=== PATIENT | male | born 1940 | race Caucasian/White ===

== ENCOUNTER → 2020-05-03 | Outpatient (CLI) | payer OTHER ==
[~2020-05-03] MED LIST: ACETAMINOPHEN325 M1 PO; AMBEREN; ASPIRIN EC81 M1 PO; ATENOLOL 25 MG25 M1 PO; CALCIUM 600 +1 EAC8; CARDIZEM CD120 MG PO; DILTIAZEM ER120 M1 PO; DILTIAZEM ER180 M1; EQL GLUCOSAMIN; FISH OIL SOFTG1 EACH; FISHOIL; FLOMAX PO; NAPROSYN500 MG PO; NEXIUM40 MG PO; PRADAXA150 MG PO; PRIMIDONE50 MG PO; REQUIP 1 MG TABL1 M1 PO; TAMBOCOR 50 MG50 MG PO; TAMSULOSIN HCL0.4 M1 PO; VITAMIN D35000 UNI1; VITAMINC500
== END ==
LOC: SJCVC 11:33
PROVIDERS: ATTEND Internal Medicine
DX: Z45.018 Encounter for adjustment and management of other part of cardiac pacemaker (principal); R94.31 Abnormal electrocardiogram [ECG] [EKG]; I48.0 Paroxysmal atrial fibrillation; I11.0 Hypertensive heart disease with heart failure; I50.32 Chronic diastolic (congestive) heart failure; E78.5 Hyperlipidemia, unspecified; G47.33 Obstructive sleep apnea (adult) (pediatric); Z79.01 Long term (current) use of anticoagulants; Z79.899 Other long term (current) drug therapy; Z87.891 Personal history of nicotine dependence

== ENCOUNTER → 2020-11-06 | Outpatient (CLI) | payer OTHER | LOC: SJCVC 13:31 | PROVIDERS: ATTEND Internal Medicine | DX: I48.0 Paroxysmal atrial fibrillation (principal); R94.31 Abnormal electrocardiogram [ECG] [EKG]; I45.2 Bifascicular block; I11.0 Hypertensive heart disease with heart failure; I50.32 Chronic diastolic (congestive) heart failure; E78.5 Hyperlipidemia, unspecified; Z95.0 Presence of cardiac pacemaker; Z79.01 Long term (current) use of anticoagulants; G47.33 Obstructive sleep apnea (adult) (pediatric); Z79.899 Other long term (current) drug therapy; Z87.891 Personal history of nicotine dependence ==

== ENCOUNTER → 2021-06-07 | Outpatient (CLI) | payer OTHER | LOC: SJCVCIMAG 05-10 07:46 | PROVIDERS: ATTEND Internal Medicine | DX: R94.31 Abnormal electrocardiogram [ECG] [EKG] (principal); I08.0 Rheumatic disorders of both mitral and aortic valves; I48.0 Paroxysmal atrial fibrillation; I11.0 Hypertensive heart disease with heart failure; I50.32 Chronic diastolic (congestive) heart failure; E78.5 Hyperlipidemia, unspecified; G47.33 Obstructive sleep apnea (adult) (pediatric); Z79.01 Long term (current) use of anticoagulants; Z95.0 Presence of cardiac pacemaker; Z79.899 Other long term (current) drug therapy; Z87.891 Personal history of nicotine dependence; Z88.1 Allergy status to other antibiotic agents; Z88.8 Allergy status to other drugs, medicaments and biological substances ==